=== PATIENT | female | born 1975 | race Caucasian/White ===

== ENCOUNTER 2016-09-06 20:54 | Emergency (ER) | payer OTHER ==
--- NOTE | 2016-09-06 23:45 | DIAGNOSTIC IMAGING REPORT ---
PROCEDURE: XR CHEST 2 VIEW INDICATION: FEVER, initial encounter TECHNIQUE: PA and lateral view. COMPARISON: None. FINDINGS: Lungs are clear. Cardiovascular structures are normal. Bony thorax is unremarkable. IMPRESSION: 1. Negative chest.
--- NOTE | 2016-09-07 00:47 | ED NURSING NOTES ---
Clinical Report - Nurses [facility] [address] [place] [address] 09/06/2016 20:55 Patient: VALDO PACHECO TRIAGE Triage time 2105. Acuity: LEVEL 3. Chief Complaint: FEVER, SORE THROAT and BODY ACHES. --21:25 Katina Martinez R.N. 21:05 09/06/16. BP: 134/56. HR: 105. RR: 20. O2 saturation: 98%. Temp: 98.5 F. Pain level now: 12/10. --21:25 Katina Martinez R.N. Weight: 117.9 kg stated. Height/Length: 63 inches Per Patient. BMI: 46.1. --21:24 Katina Martinez R.N. Medications Atenolol Oral 100 mg, daily. CeleXA Oral 40 mg, daily. Gabapentin Oral 300 mg, 2x a day. HYDROcodone Bitartrate ER Oral 5/3225mg , 1-2x/day . Norvasc Oral 5 mg, daily. ZyPREXA Oral, daily. --21:18 Katina Martinez R.N. Muscinex 1 at 1530. --21:18 Katina Martinez R.N. Allergies Metformin-- GI upset, dizzy. --21:17 Katina Martinez R.N. ASA- GI upset. --21:17 Katina Martinez R.N. History Arrived by private vehicle. Historian: patient. Accompanied by friend. Patient has a primary care physician. Primary physician (Luz Maria). Onset. ( night). She has had fatigue, sinus pain and a headache. No abdominal pain, vomiting or diarrhea. PAST MEDICAL HX: Asthma. SOCIAL HX: Never smoker. No alcohol use or drug use. --21:25 Katina Martinez R.N. PROBLEMS: Hypertension. Hypercholesterolemia. Asthma. Arthritis. --21:23 Katina Martinez R.N. ADDITIONAL SURGERIES: Gastric band 2010, gastric sleve 2012. Laminectomy. LEAP proceedure. --21:23 Katina Martinez R.N. Interventions ID band on patient. To treatment room. --21:25 Katina Martinez R.N. NURSING PROGRESS NOTES 21:20. Patient ID band checked: patient confirmed. Flu swab obtained by RN via nasal pharyngeal swab. Labeled in the presence of the patient and sent to lab. --21:25 Katina Martinez R.N. 22:38 09/06/16. Patient transported to radiology by stretcher with tech. --22:40 Endy Braswell R.N. 23:07 09/06/2016 Site #1 started via IV in the right antecubital space with an 20g angiocath, with aseptic technique and good blood return; one attempt. Blood drawn: rainbow set. Labeled in the presence of the patient and sent to the lab. Saline lock flushed with saline. --23:07 Varun Osorio R.N. 23:09/06/2016 Toradol IVP 30 mg given. via site #1. Allergies verified and confirmed 5 rights. IV patency established. IV site checked: no pain, redness, or swelling. IV flushed thoroughly pre- and post-medication administration. --23:07 Varun Osorio R.N. 23:09/06/2016 Started bag #1 1000 mL IV Fluids IV NS (Saline); bolus of 1000 mL wide open via site #1. Allergies verified and confirmed 5 rights. IV patency established. IV site checked: no pain, redness, or swelling. IV flushed thoroughly pre- and post-medication administration. --23:08 Varun Osorio R.N. 00:49 09/07/2016 IV Fluids IV NS Discontinued: completed. Total amount infused: 1000 mL. IV patency established. IV site checked: no pain, redness, or swelling. IV flushed thoroughly. --00:49 Varun Osorio R.N. 01:09/07/2016 Bactrim DS (Sulfamethoxazole-TMP DS) PO Tablets 1 tab given. Allergies verified and confirmed 5 rights. --01:09 Varun Osorio R.N. 01:09/07/2016 Site #1 removed upon discharge. Pressure dressing applied. --01:09 Varun Osorio R.N. DISPOSITION / DISCHARGE Departure time: 011. Condition at departure: improved. No learning barriers present. Discharge instructions provided and reviewed with the patient and family. Reviewed warnings. Reviewed medication(s). Treatments reviewed. Patient and family verbalized understanding. Written instructions provided in Sinhala. The patient was discharged by the physician. She was discharged home and accompanied by family. She left the Emergency Department ambulatory and via private vehicle. Family member driving. FALL RISK ASSESSMENT: Fall risk assessment completed. No fall risk identified. --01:12 Varun Osorio R.N. 01:11 09/07/16. BP: 132/62. HR: 88. RR: 16. O2 saturation: 98%. Temp: 98 F. Pain level now 3/10. --01:12 Varun Osorio R.N. Locked/Released at 09/07/2016 1:12 by Varun Osorio R.N.
--- NOTE | 2016-09-07 00:47 | ED ORDER SUMMARY ---
..... Patient: VALDO PACHECO OrderSheet [facility] VisitID: [id number] [place] [address] 40y, F Registration Date/Time: 09/06/2016 ORDER SHEET Weight: 117.9 kg (stated) Allergies: Metformin-- GI upset, dizzy, ASA- GI upset GENERAL ORDERS: Rapid Influenza Screen (Nasal Pharyngeal) (nasal) Urgent (21:25 09/06/2016 DDean R.N. per protocol) (Ack 21:39 Sudheer) (21:51 Altagracia R.N.) Chest 2V Urgent (22:25 09/06/2016 Dhruv JIMENEZ) (Ack 22:27 Sudheer) (22:39 Brenden R.N.) Culture, Strep Screen Urgent (22:26 09/06/2016 Dhruv JIMENEZ) (Ack 22:27 Sudheer) (22:56 Altagracia R.N.) UA-Culture if indicated Urgent (22:31 09/06/2016 Dhruv JIMENEZ) (Ack 22:33 Sudheer) (22:54 Altagracia R.N.) Urine Urgent (22:55 09/06/2016 Dhruv JIMENEZ) (22:56 Altagracia R.N.) MEDICATION ORDERS: Bactrim DS PO (Tablet 800-160 mg) 1 tab (NOW) (00:44 09/07/2016 Dhruv JIMENEZ) (1:09 Altagracia R.N.) IV FLUIDS: IV NS : initial bolus 1000 mL (1000 mL/hr), then none - (NOW) (22:25 09/06/2016 Dhruv JIMENEZ) (23:08 Altagracia R.N.) Toradol IV 30 mg (NOW) (22:25 09/06/2016 Dhruv JIMENEZ) (23:07 Altagracia R.N.) ORDER SHEET NOTES: [Electronically signed by Varun Osorio R.N. (01:12 09/07/2016)] [Electronically signed by Liza Osuna MD (17:59 09/08/2016)] [Electronically locked/signed by Varun Osorio R.N. (01:12 09/07/2016)Jose
--- NOTE | 2016-09-07 00:47 | ED CLINICAL REPORT ---
Clinical Report - Physicians/Mid Levels [facility] [address] [place] [address] 09/06/2016 20:55 Patient: VALDO PACHECO Time Seen: 21:21. Arrived- By private vehicle. Historian- patient. HISTORY OF PRESENT ILLNESS Chief Complaint: COUGH, SORE THROAT, SINUS PAIN, FEVER and CHILLS. This started about 2 days ago and is still present. The illness is described as moderate. The patient has had a cough, a sore throat, nasal congestion, sinus pressure and chills. She has had a nasal discharge. No sputum production, difficulty breathing, muscle aches, hoarseness or sinus drainage. No ear pain. She complains of moderate, sharp central chest pain (hurts with deep breath), currently moderate. No radiation, modifying factors or associated symptoms. She has had fever of 103.1 F orally (today). Additional history - No known contact with a sick individual. Similar symptoms previously: None. Recent medical care: Not recently seen/assessed. REVIEW OF SYSTEMS The patient has had a headache. No eye discomfort, nausea, vomiting, diarrhea or abdominal pain. No hay fever, pedal edema, calf pain, difficulty with urination or skin rash. No enlarged lymph nodes or joint pain. All systems otherwise negative, except as recorded above. PAST HISTORY Problems: Obesity. Asthma. Arthritis. Hypertension. Hypercholesterolemia. Additional Surgeries: Gastric band 2009, gastric sleve 2012. Laminectomy. LEAP proceedure. Medications: Muscinex 1 at 1530. Atenolol Oral 100 mg, daily. CeleXA Oral 40 mg, daily. Gabapentin Oral 300 mg, 2x a day. HYDROcodone Bitartrate ER Oral 5/3225mg , 1-2x/day . Norvasc Oral 5 mg, daily. ZyPREXA Oral, daily. Allergies: ASA- GI upset. Metformin-- GI upset, dizzy. SOCIAL HISTORY Never smoker. No alcohol use or drug use. ADDITIONAL NOTES The nursing notes have been reviewed. PHYSICAL EXAM Vital Signs: 09/06/2016 21:05 BP: 134/56. HR: 105. RR: 20. O2 saturation: 98%. Temp: 98.5 F. Pain level now: 12/10. Have been reviewed. Appearance: Alert. No acute distress. (PT appears moderately uncomfortable.). Eyes: Pupils equal, round and reactive to light. Eyes normal inspection. ENT: Nose normal. Mild generalized pharyngeal erythema (no tonsillar exudate). No pharyngeal vesicles or ulcerations. Uvula midline. Neck: Normal inspection. Neck supple. CVS: Normal heart rate and rhythm. Heart sounds normal. Pulses normal. Respiratory: No respiratory distress. Breath sounds normal. Abdomen: Soft and nontender. Obese. Back: Normal inspection. No CVA tenderness. Skin: Skin warm and dry. Normal skin color. No rash. Normal skin turgor. Extremities: Extremities exhibit normal ROM. No lower extremity edema. Neuro: Oriented X 3. No motor deficit. No sensory deficit. LABS, X-RAYS, AND EKG Chest X-ray: No acute disease. Normal lung markings present. Normal heart size. Mediastinum normal. Great vessels normal. Soft tissues normal. No infiltrate. No fracture. No bony lesion present. Views: PA and lateral. Technique: good. The X-rays were independently viewed by me, interpreted by the radiologist and contemporaneously by me and discussed with the radiologist. Prior films were not available for comparison. Laboratory Tests: UA-Culture if indicated: (CARMEN: 09/06/2016 22:51) ( MsgRcvd 09/06/2016 23:07) Final results Test Result Flag Units (Reference) URINE COLOR YELLOW URINE APPEARANCE CLEAR URINE GLUCOSE NEGATIVE (NEGATIVE) URINE BILIRUBIN NEGATIVE (NEGATIVE) URINE KETONE NEGATIVE (NEGATIVE) URINE SPECIFIC GRAVITY 1.020 (1.010-1.030) URINE PH 6.5 (5.0-8.0) URINE PROTEIN NEGATIVE (NEGATIVE) URINE UROBILINOGEN 0.2 EU/dL (0.2-1.0) URINE NITRITE NEGATIVE (NEGATIVE) URINE BLOOD 2+ (NEGATIVE) URINE LEUK ESTERASE NEGATIVE (NEGATIVE) URINE RBC 1-3 rbc/hpf (0-1) URINE WBC 1-3 wbc/hpf (0-1) URINE EPITHELIAL CELLS 1-3 EPI/hpf (0-5) URINE BACTERIA MANY (4+) (NONE SEEN) URINE COMMENT CULTURE INDICATED URINE CULTURES ARE SET-UP BASED ON THE FOLLOWING CRITERIA:POSITIVE NITRITEPOSITIVE LEUKOCYTE ESTERASEGREATER THAN 10 WHITE BLOOD CELLSMODERATE (2+) OR GREATER BACTERIA Urine: (CARMEN: 09/06/2016 22:51) ( [facility] 09/06/2016 23:02) Final results Test Result Flag Units (Reference) URINE NEGATIVE Culture, Strep Screen: (CAREMN: 09/06/2016 22:20) ( [facility] 09/06/2016 22:36) Final results Test Result Flag Units (Reference) RAPID STREP SCREEN - THROAT CALLED TO: -- DATE: 09/06/16 NEGATIVE SCREEN: RAPID STREP SCREEN NEGATIVE; CONFIRMATION TO FOLLOW Rapid Influenza Screen: (CARMEN: 09/06/2016 21:20) ( [facility] 09/06/2016 21:45) Final results SPECIMEN DESCRIPTION: NASAL Test Result Flag Units (Reference) RAPID INFLUENZA SCREEN CALLED TO: NA -- DATE: 09/06/16 INFLUENZA A: NEGATIVE SCREEN FOR INFLUENZA A INFLUENZA B: NEGATIVE SCREEN FOR INFLUENZA B . Pulse Oximetry: 09/06/2016 21:05 O2 saturation: 98%. (FIO2 - room air). Interpretation: normal. PROGRESS AND PROCEDURES Course of Care: Pt was treated symptomatically with IV fluids and Toradol, and worked up with a CXR, influenza and strep swabs, and UA. Pt was found to have a mildly positive, uncontaminated UA, and was started on abx for this. Patient counseled in person regarding the patient's stable condition, test results, diagnosis and need for follow-up. Concerns were addressed. Old medical records reviewed. Disposition: Discharged. Condition: stable and improved. CLINICAL IMPRESSION Acute viral (presumed) rhinitis and pharyngitis. No airway obstruction. Acute urinary tract infection with cystitis. INSTRUCTIONS Drink plenty of fluids. Warnings: GENERAL WARNINGS: Return or contact your physician immediately if your condition worsens or changes unexpectedly, if not improving as expected, or if other problems arise. Your Current Medications: CONTINUE TAKING THE FOLLOWING MEDICATIONS: Atenolol Oral : 100 mg daily. CeleXA Oral : 40 mg daily. Gabapentin Oral : 300 mg 2x a day. HYDROcodone Bitartrate ER Oral : 5/3225mg 1-2x/day. Muscinex 1 at 1530*. Norvasc Oral : 5 mg daily. ZyPREXA Oral : daily. Prescription Medications: Bactrim DS: take 1 tablet orally every 12 hours for 5 days. No refill. Substitution is not permissible. Follow-up: Follow up with your doctor in seven days if not better. Understanding of the discharge instructions verbalized by patient. (Electronically signed by Liza Osuna MD 09/08/2016 17:59)
--- NOTE | 2016-09-07 00:47 | ED ORDER SUMMARY ---
..... Patient: VALDO PACHECO OrderSheet [facility] VisitID: [id number] [place] [address] 40y, F Registration Date/Time: 09/06/2016 ORDER SHEET Weight: 117.9 kg (stated) Allergies: Metformin-- GI upset, dizzy, ASA- GI upset GENERAL ORDERS: Rapid Influenza Screen (Nasal Pharyngeal) (nasal) Urgent (21:25 09/06/2016 DDean R.N. per protocol) (Ack 21:39 Sudheer) (21:51 Altagracia R.N.) Chest 2V Urgent (22:25 09/06/2016 Dhruv JIMENEZ) (Ack 22:27 Sudheer) (22:39 Brenden R.N.) Culture, Strep Screen Urgent (22:26 09/06/2016 Dhruv JIMENEZ) (Ack 22:27 Sudheer) (22:56 Altagracia R.N.) UA-Culture if indicated Urgent (22:31 09/06/2016 Dhruv JIMENEZ) (Ack 22:33 Sudheer) (22:54 Altagracia R.N.) Urine Urgent (22:55 09/06/2016 Dhruv JIMENEZ) (22:56 Altagracia R.N.) MEDICATION ORDERS: Bactrim DS PO (Tablet 800-160 mg) 1 tab (NOW) (00:44 09/07/2016 Dhruv JIMENEZ) (1:09 Altagracia R.N.) IV FLUIDS: IV NS : initial bolus 1000 mL (1000 mL/hr), then none - (NOW) (22:25 09/06/2016 Dhruv JIMENEZ) (23:08 Altagracia R.N.) Toradol IV 30 mg (NOW) (22:25 09/06/2016 Dhruv JIMENEZ) (23:07 Altagracia R.N.) ORDER SHEET NOTES: [Electronically signed by Varun Osorio R.N. (01:12 09/07/2016)] [Electronically signed by Liza Osuna MD (17:59 09/08/2016)] [Electronically locked/signed by Varun Osorio R.N. (01:12 09/07/2016)Jose
--- NOTE | 2016-09-08 17:59 | ED MED RECONCILIATION SUMMARY ---
Patient: VALDO PACHECO Medication Reconciliation Report [facility] VisitID: [id number] [address] [place] [address] 40y, F Registration Date/Time: 09/06/2016 Weight: 117.9 kg Height/Length: 63 in. BMI: 46.1 ALLERGIES: ASA- GI upset, Metformin-- GI upset, dizzy The patient's Home Medications are listed below: CONTINUE TAKING THE FOLLOWING MEDICATIONS: Atenolol Oral 100 mg, daily CeleXA Oral 40 mg, daily Gabapentin Oral 300 mg, 2x a day HYDROcodone Bitartrate ER Oral 5/3225mg , 1-2x/day Muscinex 1 at 1530 Norvasc Oral 5 mg, daily ZyPREXA Oral, daily The source(s) of the original Home Medication information: Not obtained. The following Medications were given to the patient in the Emergency Department: Toradol [IVP] IVP 30 mg, administered: 09/06/2016 11:07:00 PM IV NS IV Fluids bolus 1000 mL wide open, administered: 09/06/2016 11:08:00 PM Bactrim DS [PO] PO 1 tab, administered: 09/07/2016 1:09:00 AM The following Medications were prescribed to the patient: Bactrim DS: take 1 tablet orally every 12 hours for 5 days. No refill. Substitution is not permissible. -- Liza Osuna MD
--- NOTE | 2016-09-08 17:59 | ED MED RECONCILIATION SUMMARY ---
Patient: VALDO PACHECO Medication Reconciliation Report [facility] VisitID: [id number] [address] [place] [address] 40y, F Registration Date/Time: 09/06/2016 Weight: 117.9 kg Height/Length: 63 in. BMI: 46.1 ALLERGIES: ASA- GI upset, Metformin-- GI upset, dizzy The patient's Home Medications are listed below: CONTINUE TAKING THE FOLLOWING MEDICATIONS: Atenolol Oral 100 mg, daily CeleXA Oral 40 mg, daily Gabapentin Oral 300 mg, 2x a day HYDROcodone Bitartrate ER Oral 5/3225mg , 1-2x/day Muscinex 1 at 1530 Norvasc Oral 5 mg, daily ZyPREXA Oral, daily The source(s) of the original Home Medication information: Not obtained. The following Medications were given to the patient in the Emergency Department: Toradol [IVP] IVP 30 mg, administered: 09/06/2016 11:07:00 PM IV NS IV Fluids bolus 1000 mL wide open, administered: 09/06/2016 11:08:00 PM Bactrim DS [PO] PO 1 tab, administered: 09/07/2016 1:09:00 AM The following Medications were prescribed to the patient: Bactrim DS: take 1 tablet orally every 12 hours for 5 days. No refill. Substitution is not permissible. -- Liza Osuna MD
--- NOTE | 2016-09-08 17:59 | ED MAR SUMMARY ---
..... Medication Administration Record [facility] [address] [place] [address] Patient: VALDO PACHECO Visit ID: [id number] 40y, F Weight: 117.9 kg Height/Length: 63 in BMI: 46.1 ALLERGIES: ASA- GI upset, Metformin-- GI upset, dizzy Given 23:07 09/06/2016 Varun Osorio R.N. Medication Administered: TORADOL [IVP], Dose: 30 mg IVP, Site: #1 right AC. Medication Ordered: Toradol IV 30 mg (NOW). Start 23:08 09/06/2016 Varun Osorio R.N., Stop 00:49 09/07/2016 Varun Osorio R.N. Medication Administered: IV NS (SALINE), Dose: IV Fluids, Bolus: 1000 mL wide open, Dispensed: 1000 mL bag, Site: #1 right AC. Medication Ordered: IV NS : initial bolus 1000 mL (1000 mL/hr), then none - (NOW). Given 01:09 09/07/2016 Varun Osorio R.N. Medication Administered: BACTRIM DS [PO] (SULFAMETHOXAZOLE-TMP DS), Dose: 1 tab Tablets PO. Medication Ordered: Bactrim DS PO (Tablet 800-160 mg) 1 tab (NOW).
--- NOTE | 2016-09-08 17:59 | ED MAR SUMMARY ---
..... Medication Administration Record [facility] [address] [place] [address] Patient: VALDO PACHECO Visit ID: [id number] 40y, F Weight: 117.9 kg Height/Length: 63 in BMI: 46.1 ALLERGIES: ASA- GI upset, Metformin-- GI upset, dizzy Given 23:07 09/06/2016 Varun Osorio R.N. Medication Administered: TORADOL [IVP], Dose: 30 mg IVP, Site: #1 right AC. Medication Ordered: Toradol IV 30 mg (NOW). Start 23:08 09/06/2016 Varun Osorio R.N., Stop 00:49 09/07/2016 Varun Osorio R.N. Medication Administered: IV NS (SALINE), Dose: IV Fluids, Bolus: 1000 mL wide open, Dispensed: 1000 mL bag, Site: #1 right AC. Medication Ordered: IV NS : initial bolus 1000 mL (1000 mL/hr), then none - (NOW). Given 01:09 09/07/2016 Varun Osorio R.N. Medication Administered: BACTRIM DS [PO] (SULFAMETHOXAZOLE-TMP DS), Dose: 1 tab Tablets PO. Medication Ordered: Bactrim DS PO (Tablet 800-160 mg) 1 tab (NOW).
--- NOTE | 2016-09-08 17:59 | ED DISCHARGE INSTRUCTIONS ---
Patient: VALDO PACHECO General Instructions [facility] VisitID: [id number] [place] [address] 40y, F Registration Date/Time: 09/06/2016 Acute viral (presumed) rhinitis and pharyngitis. No airway obstruction. Acute urinary tract infection with cystitis. INSTRUCTIONS Drink plenty of fluids. Warnings: GENERAL WARNINGS: Return or contact your physician immediately if your condition worsens or changes unexpectedly, if not improving as expected, or if other problems arise. Your Current Medications: CONTINUE TAKING THE FOLLOWING MEDICATIONS: Atenolol Oral : 100 mg daily. CeleXA Oral : 40 mg daily. Gabapentin Oral : 300 mg 2x a day. HYDROcodone Bitartrate ER Oral : 5/3225mg 1-2x/day. Muscinex 1 at 1530*. Norvasc Oral : 5 mg daily. ZyPREXA Oral : daily. Prescription Medications: Bactrim DS: take 1 tablet orally every 12 hours for 5 days. No refill. Substitution is not permissible. Follow-up: Follow up with your doctor in seven days if not better. Understanding of the discharge instructions verbalized by patient. ADDITIONAL INFORMATION Viral Respiratory Illness [Adult] You have an Upper Respiratory Illness (URI) caused by a virus. This illness is contagious during the first few days. It is spread through the air by coughing and sneezing or by direct contact (touching the sick person and then touching your own eyes, nose or mouth). Most viral illnesses go away within 7-10 days with rest and simple home remedies. Sometimes, the illness may last for several weeks. Antibiotics will not kill a virus and are generally not prescribed for this condition. Home Care: 1) If symptoms are severe, rest at home for the first 2-3 days. When you resume activity, don't let yourself get too tired. 2) Avoid being exposed to cigarette smoke (yours or others). 3) Tylenol (acetaminophen) or ibuprofen (Advil, Motrin) will help fever, muscle aching and headache. (Persons under 18 with fever should not take aspirin since this may cause liver damage.) 4) Your appetite may be poor, so a light diet is fine. Avoid dehydration by drinking 6-8 glasses of fluids per day (water, soft drinks, juices, tea, soup). Extra fluids will help loosen secretions in the nose and lungs. 5) Bjiy-yux-zvjjrbz cold medicines will not shorten the length of time youre sick, but they may be helpful for the following symptoms: cough (Robitussin DM); sore throat (Chloraseptic lozenges or spray); nasal and sinus congestion (Actifed, Sudafed, Chlortrimeton). Follow Up with your doctor or as advised if you dont improve over the next week. Get Prompt Medical Attention if any of the following occur: -- Cough with lots of colored sputum (mucus) or blood in your sputum -- Chest pain, shortness of breath, wheezing or have trouble breathing -- Severe headache; face, neck or ear pain -- Fever over 100.4 F (38.0 C) for more than three days -- You cant swallow due to throat pain Bladder Infection,Female (Adult) A bladder infection ("cystitis" or "UTI") usually causes a constant urge to urinate and a burning when passing urine. Urine may be cloudy, smelly or dark. There may be pain in the lower abdomen. A bladder infection occurs when bacteria from the vaginal area enter the bladder opening (urethra). This can occur from sexual intercourse, wearing tight clothing, dehydration and other factors. Home Care: Drink lots of fluids (at least 6-8 glasses a day, unless you must restrict fluids for other medical reasons). This will force the medicine into your urinary system and flush the bacteria out of your body. Avoid sexual intercourse until your symptoms are gone. Avoid caffeine, alcohol and spicy foods. These can irritate the bladder. A bladder infection is treated with antibiotics. You may also be given Pyridium (generic = phenazopyridine) to reduce the burning sensation. This medicine will cause your urine to become a bright orange color. The orange urine may stain clothing. You may wear a pad or panty-liner to protect clothing. Preventing Future Infections: Always wipe from front to back after a bowel movement. Keep the genital area clean and dry. Drink plenty of fluids each day to avoid dehydration. Both sexual partners should wash before intercourse. Urinate right after intercourse to flush out the bladder. Wear cotton underwear and cotton-lined panty hose; avoid tight-fitting pants. If you are on control pills and are having frequent bladder infections, discuss with your doctor. Follow Up: Return to this facility or see your doctor if ALL symptoms are not gone after three days of treatment. Get Prompt Medical Attention if any of the following occur: Fever of 100.4F (38C) or higher, or as directed by your healthcare provider No improvement by the third day of treatment Increasing back or abdominal pain Repeated vomiting; unable to keep medicine down Weakness, dizziness or fainting Vaginal discharge Pain, redness or swelling in the labia (outer vaginal area) You have been given the following additional information: Uri, Viral, No Abx (Adult) Bladder Infection, Female (Adult) (Electronically signed by Liza Osuna MD 09/08/2016 17:59)
== END 2016-09-07 01:08 | disposition home or self-care (01) ==
LOC: ED SRH 20:54
DX: J31.0 Chronic rhinitis (principal); B97.89 Other viral agents as the cause of diseases classified elsewhere; N30.00 Acute cystitis without hematuria; J02.9 Acute pharyngitis, unspecified; J45.909 Unspecified asthma, uncomplicated; I10 Essential (primary) hypertension; Z79.899 Other long term (current) drug therapy; Z88.8 Allergy status to other drugs, medicaments and biological substances
CPT/HCPCS: 90004; 90154; 90159; 90469; 91400; 93070

== ENCOUNTER 2016-09-18 13:53 | Outpatient (CLI) | payer OTHER ==
--- NOTE | 2016-09-18 15:22 | DIAGNOSTIC IMAGING REPORT ---
PROCEDURE: US COMPLETE PELVIC W/TRANSVAG INDICATION: Abnormal uterine bleeding since May 2016. TECHNIQUE: Transabdominal and endovaginal pabon scale and color Doppler sonographic images of the female pelvis were obtained. COMPARISON: Pelvic ultrasound 01/06/2014 FINDINGS: TRANSABDOMINAL SCANS: Study limited by patient's body habitus. Anteverted uterus. Normal kidneys. TRANSVAGINAL SCANS: Uterus measures 7.3 x 6.1 x 4.2 cm. Inhomogeneous avascular endometrium measures 16.8 mm. Myometrium is unremarkable. Nabothian cysts are present. Ovaries are not visualized. No adnexal mass or free fluid in the cul-de-sac. IMPRESSION: 1. Study limited by patient's body habitus 2. Mild thickening of the inhomogeneous avascular endometrium which may represent blood. Hyperplasia is a consideration. Recommend follow-up ultrasound. 3. Ovaries not visualized.
== END 2016-09-18 23:00 ==
LOC: US SRH 13:53
DX: N93.9 Abnormal uterine and vaginal bleeding, unspecified (principal); R93.8 Abnormal findings on diagnostic imaging of other specified body structures